=== PATIENT | female | born 1960 | race Caucasian/White ===

== ENCOUNTER 2017-09-07 11:57 | Inpatient (IN) | payer MEDICARE, OTHER ==
[~2017-09-07] VITALS: Ht 154.9 cm; Wt 90.3 kg
[2017-09-07] MEDS ORDERED: clonazePAM 0.5 MG TABLET PO PRN (14:00)
[2017-09-07] MEDS ORDERED: MAG HYDROX/AL HYDROX/SIMETH 30 ML UDC PO PRN (14:00)
[2017-09-07] MEDS ORDERED: ACETAMINOPHEN 325 MG TABLET PO PRN (14:00)
[2017-09-07] MEDS ORDERED: TEMAZEPAM 7.5 MG CAPSULE PO PRN (14:00)
[2017-09-07] MEDS ORDERED: MAGNESIUM HYDROXIDE 30 ML UDC PO PRN (14:00)
[2017-09-07] MEDS ORDERED: METF500T6 PO (14:30)
[2017-09-07] MEDS ORDERED: MAGN400T26 PO (14:30)
[2017-09-07] MEDS ORDERED: LOSA50TA21 PO (14:30)
[2017-09-07] MEDS ORDERED: INSU100V10 SQ (14:30)
[2017-09-07] MEDS ORDERED: ASPI-1152 PO (14:30)
[2017-09-07] MEDS ORDERED: GLIP10TA11 PO (14:30)
[2017-09-07] MEDS ORDERED: CARV3.122 PO (14:30)
[2017-09-07] MEDS ORDERED: ISOS30TA6 PO (14:30)
[2017-09-07] MEDS ORDERED: GABA-532 PO (14:30)
[2017-09-07 16:00] VITALS: BP 137/75
[2017-09-07] MEDS ORDERED: TRAMADOL HCL 50 MG TABLET PO PRN (17:30)
[2017-09-07] MEDS ORDERED: DEXTROSE 50%-WATER 50 ML DISP.SYRIN IV PRN (17:30)
--- NOTE | 2017-09-07 17:30 | NUR ---
GPS/RN-NOTES ADMITTED 57 YEARS OLD FEMALE PATIENT FROM [facility].PATIENT IS UNDER THE CARE OF DR. DOBBINS AND DR. HUNT. BOTH MD WAS AWARE OF PATIENT ADMISSION WITH ORDERS. UPON FACE TO FACE ASSESSMENT, PATIENT ALERT ORIENTED X2 AMBULATORY WITH ASSIST AZERI SPEAKING ONLY. PATIENT NOTED WITH EASILY ANGRY ,GUARDED DEPRESSED MOOD AND UNCOOPERATIVE BEHAVIOR. REFUSED BODY ASSESSMENT AND PHOTO TAKEN AT THIS TIME. CONTRABAND DONE NO BELONGINGS ON ADMISSION. PATIENT DTR ALISON ARANGO MADE AWARE OF THE ADMISSION. MRSA DONE. PATIENT WAS ORIENTED TO THE UNIT AND UNIT POLICIES. PATIENT RIGHTS WAS DISCUSS WITH THE PATIENT AND BOOKLET WAS GIVEN TO HER. WILL CONT. MONITORING Q15 MINS. FOR SAFETY AND BEHAVIOR.
[2017-09-07] MEDS: BLOOD SUGAR DIAGNOSTIC 1 EACH STRIP IN SCH (17:54)
[2017-09-07] MEDS: ESCITALOPRAM OXALATE (10 MG) 10 MG TABLET PO SCH (17:57)
[2017-09-07] MEDS: LOSARTAN POTASSIUM 50 MG TABLET PO SCH (17:58)
[2017-09-07] MEDS: INSULIN REGULAR, HUMAN 100 UNIT/ML 3 ML VIAL SQ PRN (18:21)
[2017-09-07] MEDS: GABAPENTIN 100 MG CAPSULE PO SCH (18:23)
--- NOTE | 2017-09-07 18:31 | NUR ---
GPS/RN-NOTES PATIENT REFUSED LAB DRAW AT THIS TIME DESPITE EXPLANATION RISK AND BENEFITS . WILL ENDORSE TO INCOMING NURSE FOR CONTINUITY OF CARE.
[2017-09-07 20:00] VITALS: BP 127/70
[2017-09-08] MEDS: ARIPIPRAZOLE 5 MG TABLET PO SCH ×2 (00:02→22:46)
[2017-09-08] MEDS: BLOOD SUGAR DIAGNOSTIC 1 EACH STRIP IN SCH ×5 (00:03→22:47)
[2017-09-08] MEDS: CARVEDILOL 6.25 MG TABLET PO SCH ×3 (00:03→22:46)
[2017-09-08] MEDS: INSULIN REGULAR, HUMAN 100 UNIT/ML 3 ML VIAL SQ PRN ×5 (00:07→22:49)
[2017-09-08 08:00] VITALS: BP 141/83
[2017-09-08 08:30] LABS: BASOPHILS % (AUTO) 0.4 % (0.0-2.0); EOSINOPHILS % (AUTO) 2.9 % (0.0-6.0); HEMATOCRIT 41 % (33-45); HEMOGLOBIN 14.5 g/dL (11.5-14.8); LYMPHOCYTES # (AUTO) 2.4 /CMM (0.8-4.8); LYMPHOCYTES % (AUTO) 24.6 % (20.0-44.0); MEAN CORPUSCULAR HEMOGLOBIN 33 PG (26.0-33.0); MEAN CORPUSCULAR HGB CONC 35 g/dl (31.0-36.0); MEAN CORPUSCULAR VOLUME 93 fL (82-100); MONOCYTES # (AUTO) 0.8 /CMM (0.1-1.30); NEUTROPHILS # (AUTO) 6.3 /CMM (1.8-8.9); NEUTROPHILS % (AUTO) 64.1 % (43.0-81.0); PLATELET COUNT (AUTO) 212 /CMM (150-450); RDW COEFFICIENT OF VARIATION 12.3 (11.5-15.0); RED BLOOD CELL COUNT(AUTO) 4.42 MIL/uL (4.0-5.2); WHITE BLOOD COUNT (AUTO) 9.8 K/uL (4.3-11.0)
[2017-09-08] MEDS: LOSARTAN POTASSIUM 50 MG TABLET PO SCH (08:33)
[2017-09-08] MEDS: GABAPENTIN 100 MG CAPSULE PO SCH ×3 (08:33→17:58)
[2017-09-08] MEDS: ESCITALOPRAM OXALATE (10 MG) 10 MG TABLET PO SCH (08:33)
[2017-09-08] MEDS: ASPIRIN 81 MG TAB.CHEW PO SCH (08:34)
[2017-09-08 08:38] LABS: CHOLESTEROL 185 mg/dL (<200); HDL CHOLESTEROL 38 mg/dL (40-60); LDL 127 mg/dL (0-99); TRIGLYCERIDES 161 mg/dL (30-150)
[2017-09-08 08:42] LABS: ALBUMIN 2.4 g/dL (3.4-5.0); BILIRUBIN,TOTAL 0.4 mg/dL (0.2-1.0); CALCIUM, SERUM 8.8 mg/dL (8.5-10.1); CREATININE 0.6 mg/dL (0.6-1.3); POTASSIUM 3.8 mmol/L (3.5-5.1)
[2017-09-08 09:29] LABS: THYROID STIMULATING HORMONE 1.303 uIU/mL (0.358-3.74)
[2017-09-08 09:53] LABS: MAGNESIUM 1.5 mg/dL (1.8-2.4)
--- NOTE | 2017-09-08 14:14 | NUR ---
TATYANA contacted pts daughter Karma [phone] for collateral information. Pt daughter stated that her and sister Soraida Palma wish for pt to be placed in a SNF.
--- NOTE | 2017-09-08 14:15 | NUR ---
SW attempted to contact APS social service assistant Gila Castano [phone]. Per pts daughter Karma phillips currently has an open case with APS and case # is [id number]. SW left voicemail for callback.
--- NOTE | 2017-09-08 15:00 | NUR ---
INITIAL DISCHARGE PLAN: Per pts daughter Karma Calderon [phone] she wishes patient to be discharged to SNF. Pts daughter will assist SW with locating a SNF close to [place], [place] as she wants pt to be close to her home. SW will help form a safe and proper discharge in collaboration with MD and daughter.
[2017-09-08 16:08] VITALS: BP 145/83
[2017-09-08 20:00] VITALS: BP 117/89
[2017-09-09 08:00] VITALS: BP 157/86
[2017-09-09] MEDS: BLOOD SUGAR DIAGNOSTIC 1 EACH STRIP IN SCH ×4 (08:38→21:29)
[2017-09-09] MEDS: INSULIN REGULAR, HUMAN 100 UNIT/ML 3 ML VIAL SQ PRN ×3 (08:40→21:39)
[2017-09-09] MEDS: LOSARTAN POTASSIUM 50 MG TABLET PO SCH (08:48)
[2017-09-09] MEDS: ASPIRIN 81 MG TAB.CHEW PO SCH (08:48)
[2017-09-09] MEDS: GABAPENTIN 100 MG CAPSULE PO SCH ×3 (08:49→16:58)
[2017-09-09] MEDS: ESCITALOPRAM OXALATE (10 MG) 10 MG TABLET PO SCH (08:49)
[2017-09-09] MEDS: CARVEDILOL 6.25 MG TABLET PO SCH ×2 (08:49→20:07)
[2017-09-09 16:36] VITALS: BP 142/91
[2017-09-09] MEDS: ARIPIPRAZOLE 5 MG TABLET PO SCH (21:29)
[2017-09-10] MEDS ORDERED: MECLIZINE HCL 12.5 MG TABLET PO PRN (01:30)
--- NOTE | 2017-09-10 03:22 | NUR ---
GPS RN NOTE: Patient had an episode of dizziness and nausea. Per daughter, patient had a prescription of meclizine and reglan. Notified Dr. Schaefer with orders received noted and carried out. Will continue to monitor [id number] for safety
[2017-09-10 08:00] VITALS: BP 148/88
[2017-09-10] MEDS: ESCITALOPRAM OXALATE (10 MG) 10 MG TABLET PO SCH (08:13)
[2017-09-10] MEDS: LOSARTAN POTASSIUM 50 MG TABLET PO SCH (08:14)
[2017-09-10] MEDS: GABAPENTIN 100 MG CAPSULE PO SCH ×2 (08:14→12:00)
[2017-09-10] MEDS: ASPIRIN 81 MG TAB.CHEW PO SCH (08:14)
[2017-09-10] MEDS: CARVEDILOL 6.25 MG TABLET PO SCH ×2 (08:14→21:21)
[2017-09-10] MEDS: BLOOD SUGAR DIAGNOSTIC 1 EACH STRIP IN SCH ×4 (08:22→21:49)
[2017-09-10] MEDS: INSULIN REGULAR, HUMAN 100 UNIT/ML 3 ML VIAL SQ PRN ×4 (08:59→21:52)
--- NOTE | 2017-09-10 08:59 | NUR ---
[id number]: BLOOD SUGAR IS 225 MG/DL AND GAVE 4 UNITS OF REGULAR INSULIN.
--- NOTE | 2017-09-10 12:00 | NUR ---
[id number]: BLOOD SUGAR IS 205 MG/DL AND GAVE 4 UNITS OF REGULAR INSULIN
[2017-09-10 16:00] VITALS: BP 152/95
--- NOTE | 2017-09-10 17:40 | NUR ---
GPS/RN PRIMARY NURSE ELVI REVELES CALLED TODAY VIA [employer] EXCHANGE TO REMIND DR HUNT TO [facility]
[2017-09-10 20:04] VITALS: BP 122/76
[2017-09-10] MEDS: ARIPIPRAZOLE 5 MG TABLET PO SCH (21:20)
[2017-09-10] MEDS ORDERED: GABAPENTIN 100 MG CAPSULE PO SCH (22:00)
[2017-09-11] MEDS: BLOOD SUGAR DIAGNOSTIC 1 EACH STRIP IN SCH ×4 (07:54→22:03)
[2017-09-11] MEDS: INSULIN REGULAR, HUMAN 100 UNIT/ML 3 ML VIAL SQ PRN ×4 (08:18→22:06)
[2017-09-11 08:43] VITALS: BP 174/91
[2017-09-11] MEDS ORDERED: LOSARTAN POTASSIUM 50 MG TABLET PO SCH (09:00)
[2017-09-11] MEDS ORDERED: ASPIRIN EC 81 MG TABLET.DR PO SCH (09:00)
[2017-09-11] MEDS ORDERED: CARVEDILOL 3.125 MG TABLET PO SCH (09:00)
[2017-09-11] MEDS: GABAPENTIN 100 MG CAPSULE PO SCH ×4 (09:37→21:38)
[2017-09-11] MEDS: glipiZIDE 10 MG TABLET PO SCH ×2 (09:38→17:28)
[2017-09-11] MEDS: ISOSORBIDE MONONITRATE (30MG) 30 MG TAB.SR.24H PO SCH (09:38)
[2017-09-11] MEDS: CARVEDILOL 6.25 MG TABLET PO SCH ×2 (09:38→21:38)
[2017-09-11] MEDS: LOSARTAN POTASSIUM 50 MG TABLET PO SCH (09:39)
[2017-09-11] MEDS: ASPIRIN 81 MG TAB.CHEW PO SCH (09:39)
[2017-09-11] MEDS: MAGNESIUM OXIDE 400 MG TABLET PO SCH (09:39)
[2017-09-11] MEDS: ESCITALOPRAM OXALATE (10 MG) 10 MG TABLET PO SCH (09:39)
--- NOTE | 2017-09-11 09:45 | NUR ---
AM RN NOTE Spoke with Reggie (Pharmacist) to refill metformin in [facility], due dose not available.
[2017-09-11] MEDS: METFORMIN 500 MG TABLET PO SCH ×2 (10:38→17:28)
[2017-09-11 16:00] VITALS: BP 114/68
[2017-09-11 19:48] VITALS: BP 114/60
[2017-09-11] MEDS: ARIPIPRAZOLE 5 MG TABLET PO SCH (21:39)
[2017-09-12 08:00] VITALS: BP 126/65
[2017-09-12] MEDS: BLOOD SUGAR DIAGNOSTIC 1 EACH STRIP IN SCH ×4 (08:32→22:39)
[2017-09-12] MEDS: INSULIN REGULAR, HUMAN 100 UNIT/ML 3 ML VIAL SQ PRN ×4 (08:33→22:42)
[2017-09-12] MEDS: ESCITALOPRAM OXALATE (10 MG) 10 MG TABLET PO SCH (08:35)
[2017-09-12] MEDS: GABAPENTIN 100 MG CAPSULE PO SCH ×4 (08:35→22:34)
[2017-09-12] MEDS: glipiZIDE 10 MG TABLET PO SCH ×2 (08:35→16:39)
[2017-09-12] MEDS: METFORMIN 500 MG TABLET PO SCH ×2 (08:35→16:38)
[2017-09-12] MEDS: ISOSORBIDE MONONITRATE (30MG) 30 MG TAB.SR.24H PO SCH (08:35)
[2017-09-12] MEDS: CARVEDILOL 6.25 MG TABLET PO SCH ×2 (08:36→20:35)
[2017-09-12] MEDS: MAGNESIUM OXIDE 400 MG TABLET PO SCH (08:36)
[2017-09-12] MEDS: ASPIRIN 81 MG TAB.CHEW PO SCH (08:36)
[2017-09-12] MEDS: LOSARTAN POTASSIUM 50 MG TABLET PO SCH (09:00)
--- NOTE | 2017-09-12 09:14 | NUR ---
TATYANA faxed SNF referral to Maciel Subsystems Engineer at [facility] Address: [address] [place] [address], [place] [address] for review.
--- NOTE | 2017-09-12 09:16 | NUR ---
TATYANA faxed SNF referral to [facility] [address] in [place], [place] [address] for review.
--- NOTE | 2017-09-12 13:33 | NUR ---
SW received phone call from APS criminal justice social worker Gila Castano [phone] requesting information regarding pts hold and mental state such as orientation and capability to make own decisions. SW provided APS SW with information stating that pts insight and judgement were impaired and cooperation was minimal. SW also provided APS SW information regarding discharge plan. SW will notify APS SW when pt is discharged.
--- NOTE | 2017-09-12 13:37 | NUR ---
SW received phone call from Iris community service officer coordinator at [facility] Address: [address] [place] [address], [place] [address] stating that pt had been accepted to facility.
--- NOTE | 2017-09-12 13:38 | NUR ---
SW received phone call from Adriano recycling coordinator from [facility] [address] [facility] in [place], [place] [address] stating that pt has been accepted to their facility.
[2017-09-12 16:11] VITALS: BP 115/69
[2017-09-12 20:39] VITALS: BP 125/59
[2017-09-12] MEDS: ARIPIPRAZOLE 5 MG TABLET PO SCH (22:34)
--- NOTE | 2017-09-12 22:39 | NUR ---
ACCUCHECK = 145 MG/DL.
[2017-09-13 08:00] VITALS: BP 128/74
[2017-09-13] MEDS: BLOOD SUGAR DIAGNOSTIC 1 EACH STRIP IN SCH ×4 (08:21→22:16)
[2017-09-13] MEDS: INSULIN REGULAR, HUMAN 100 UNIT/ML 3 ML VIAL SQ PRN ×4 (08:24→22:19)
[2017-09-13] MEDS: MAGNESIUM OXIDE 400 MG TABLET PO SCH (09:22)
[2017-09-13] MEDS: ASPIRIN 81 MG TAB.CHEW PO SCH (09:22)
[2017-09-13] MEDS: ISOSORBIDE MONONITRATE (30MG) 30 MG TAB.SR.24H PO SCH (09:23)
[2017-09-13] MEDS: glipiZIDE 10 MG TABLET PO SCH ×2 (09:23→17:50)
[2017-09-13] MEDS: METFORMIN 500 MG TABLET PO SCH ×2 (09:23→17:50)
[2017-09-13] MEDS: ESCITALOPRAM OXALATE (10 MG) 10 MG TABLET PO SCH (09:23)
[2017-09-13] MEDS: CARVEDILOL 6.25 MG TABLET PO SCH ×2 (09:24→22:03)
[2017-09-13] MEDS: GABAPENTIN 100 MG CAPSULE PO SCH ×4 (09:24→22:03)
[2017-09-13 16:00] VITALS: BP 115/71
--- NOTE | 2017-09-13 16:00 | NUR ---
TATYANA spoke with Pts daughter Karma [phone] regarding pts discharge and acceptance to [facility] and [facility]. Pts daughter stated that she did not approve of discharge to either facility due to poor ratings online. TATYANA explained to pts daughter that she had encouraged her to provide SW with a list of SNFs of her liking however had not received any information from her in the past week. TATYANA also explained to pts daughter that if she interfered with discharge she would get charged the Medicare rate of approximately $1000 per day. Pts daughter understood and stated to TATYANA that she would call her morning to discuss SNF options in [place].
[2017-09-13] MEDS: LOSARTAN POTASSIUM 50 MG TABLET PO SCH (17:15)
--- NOTE | 2017-09-13 18:00 | NUR ---
dr. bradford in to see pt. pt. relocated to room 214-a.pt. just announced wants a different roommate.propellant charge loader aware.ua sent to lab.
--- NOTE | 2017-09-13 20:00 | NUR ---
GPS RN NOTE: RECEIVED PATIENT IN GERICHAIR IN DAYROOM, NAPPING BUT EASILY AROUSES TO NAME, ORIENTED X 2, FLAT AFFECT. DOES NOT ENGAGE IN CONVERSATION BUT DENIED COMPLAINTS AND NO SIGNS OF APPARENT DISTRESS. WILL CONTINUE TO MONITOR Q 15 MINUTES FOR COMFORT AND SAFETY.
[2017-09-13 21:42] VITALS: BP 144/82
[2017-09-13] MEDS: ARIPIPRAZOLE 5 MG TABLET PO SCH (22:01)
[2017-09-13] MEDS: ATORVASTATIN 10 MG TABLET PO SCH (22:03)
[2017-09-14 07:24] LABS: BASOPHILS % (AUTO) 0.5 % (0.0-2.0); EOSINOPHILS % (AUTO) 4.3 % (0.0-6.0); HEMATOCRIT 43 % (33-45); HEMOGLOBIN 14.6 g/dL (11.5-14.8); LYMPHOCYTES # (AUTO) 2.2 /CMM (0.8-4.8); MEAN CORPUSCULAR HEMOGLOBIN 32 PG (26.0-33.0); MEAN CORPUSCULAR HGB CONC 34 g/dl (31.0-36.0); MEAN CORPUSCULAR VOLUME 95 fL (82-100); MONOCYTES # (AUTO) 0.5 /CMM (0.1-1.30); MONOCYTES % (AUTO) 7.3 % (2.0-12.0); NEUTROPHILS # (AUTO) 3.5 /CMM (1.8-8.9); NEUTROPHILS % (AUTO) 53.9 % (43.0-81.0); PLATELET COUNT (AUTO) 275 /CMM (150-450); RDW COEFFICIENT OF VARIATION 13.1 (11.5-15.0); RED BLOOD CELL COUNT(AUTO) 4.54 MIL/uL (4.0-5.2); WHITE BLOOD COUNT (AUTO) 6.6 K/uL (4.3-11.0)
[2017-09-14] MEDS: BLOOD SUGAR DIAGNOSTIC 1 EACH STRIP IN SCH ×4 (07:38→21:49)
[2017-09-14 07:40] LABS: CALCIUM, SERUM 8.9 mg/dL (8.5-10.1); CREATININE 0.8 mg/dL (0.6-1.3); MAGNESIUM 1.7 mg/dL (1.8-2.4); PHOSPHORUS 4.5 mg/dL (2.5-4.9); POTASSIUM 4.1 mmol/L (3.5-5.1)
[2017-09-14 08:12] VITALS: BP 125/75
[2017-09-14] MEDS: GABAPENTIN 100 MG CAPSULE PO SCH ×5 (08:12→21:37)
[2017-09-14] MEDS: ISOSORBIDE MONONITRATE (30MG) 30 MG TAB.SR.24H PO SCH (08:12)
[2017-09-14] MEDS: LOSARTAN POTASSIUM 50 MG TABLET PO SCH (08:12)
[2017-09-14] MEDS: METFORMIN 500 MG TABLET PO SCH ×2 (08:12→16:40)
[2017-09-14] MEDS: MAGNESIUM OXIDE 400 MG TABLET PO SCH (08:12)
[2017-09-14] MEDS: ESCITALOPRAM OXALATE (10 MG) 10 MG TABLET PO SCH (08:13)
[2017-09-14] MEDS: glipiZIDE 10 MG TABLET PO SCH ×2 (08:13→16:40)
[2017-09-14] MEDS: ASPIRIN 81 MG TAB.CHEW PO SCH (08:13)
[2017-09-14] MEDS: CARVEDILOL 6.25 MG TABLET PO SCH ×2 (08:13→20:28)
--- NOTE | 2017-09-14 08:40 | NUR ---
TATYANA faxed SNF referral to Vivian disability coordinator at [facility] Address: [address] [place] [address] for review.
--- NOTE | 2017-09-14 11:55 | NUR ---
SW contacted Vivian early childhood education coordinator at [facility] Address: [address] [place] [address] for confirmed pt is approved for admission.
[2017-09-14] MEDS: INSULIN REGULAR, HUMAN 100 UNIT/ML 3 ML VIAL SQ PRN ×2 (11:59→21:52)
--- NOTE | 2017-09-14 11:59 | NUR ---
BS is 148 and pt. refused for 2 units of Humulin R, explained on the importance and said "no Insulina" in luxembourgish terminology. Will continue to monitor.
[2017-09-14 16:00] VITALS: BP 133/73
--- NOTE | 2017-09-14 19:41 | NUR ---
GPS RN NOTE: RECEIVED PATIENT ASLEEP IN BED IN ROOM. AWAKENS TO NAME, ORIENTED X 2. CALM AND PLEASANT BUT WITHDRAWN. NO SI, HI, HALLUCINATION, PAIN. DENIES COMPLAINT, NO APPARENT DISTRESS. BED IN LOW POSITION, SIDE RAILS UP X 2 FOR SAFETY. WALKER BY BESIDE, EDUCATED TO ASK FOR ASSISTANCE WITH AMBULATION NEEDED. WILL CONTINUE TO MONITOR Q15 MINUTES FOR SAFETY AND COMFORT.
[2017-09-14 20:00] VITALS: BP 131/69
--- NOTE | 2017-09-14 20:22 | NUR ---
PAGED DR. ADAMS, FASHION MERCHANDISER MD, REGARDING POSITIVE URINE LAB E. COLI, 100,000 CFUS, SENSITIVITIES PENDING. WAITING CB FOR ORDERS.
--- NOTE | 2017-09-14 20:37 | NUR ---
RECEIVED CALL FROM DR. ADAMS REGARDING POSITIVE URINE CULTURE @ 2034. PER DR. ADAMS, SINCE PATIENT IS ASYMPTOMATIC FOR UTI AND AFEBRILE, NO ORDERS.
[2017-09-14] MEDS: ATORVASTATIN 10 MG TABLET PO SCH (21:37)
[2017-09-14] MEDS: ARIPIPRAZOLE 5 MG TABLET PO SCH (21:38)
[2017-09-15] MEDS: BLOOD SUGAR DIAGNOSTIC 1 EACH STRIP IN SCH ×2 (07:46→12:07)
[2017-09-15 08:00] VITALS: BP 130/67
[2017-09-15] MEDS: ASPIRIN 81 MG TAB.CHEW PO SCH (08:54)
[2017-09-15] MEDS: ISOSORBIDE MONONITRATE (30MG) 30 MG TAB.SR.24H PO SCH (08:54)
[2017-09-15] MEDS: glipiZIDE 10 MG TABLET PO SCH (08:54)
[2017-09-15] MEDS: METFORMIN 500 MG TABLET PO SCH (08:54)
[2017-09-15] MEDS: MAGNESIUM OXIDE 400 MG TABLET PO SCH (08:55)
[2017-09-15] MEDS: CARVEDILOL 6.25 MG TABLET PO SCH (08:55)
[2017-09-15] MEDS: GABAPENTIN 100 MG CAPSULE PO SCH ×2 (08:55→12:09)
[2017-09-15] MEDS: ESCITALOPRAM OXALATE (10 MG) 10 MG TABLET PO SCH (08:55)
[2017-09-15 08:56] VITALS: BP 130/67
[2017-09-15] MEDS: LOSARTAN POTASSIUM 50 MG TABLET PO SCH (08:56)
[2017-09-15] MEDS: INSULIN REGULAR, HUMAN 100 UNIT/ML 3 ML VIAL SQ PRN (12:08)
--- NOTE | 2017-09-15 12:30 | NUR ---
GPS/RN PT DISCHARGED TO [facility] Address. PRESCRIPTIONS AND EXIT CARE PROVIDED. NO SI OR HI AT THE TIME OF D/C. PT IS NOT AMBULATORY REFUSED SKIN ASSESSMENT AND TO SIGN THE D/C PAPERWORK AT THE TIME OF DISCHARGE. NO BELONGINGS LISTED WITH THE PATIENT. LEFT TO THE FACILITY VIA AMBULANCE.
--- NOTE | 2017-09-15 13:08 | NUR ---
DISCHARGE NOTE: Pt was discharged at 12:30pm via [facility] ambulance trip #[id number] to [facility] Address: [address] [place] [address] . Pts daughter Karma [phone] was notified and agreed with discharge plan. Pts mood was pleasant with congruent affect and pt denied sucicidal/homicidal ideations and denied visual/auditory hallucinations. Pt will be under the care of Psychiatrist: Dr. Werner Address: [address] [facility] [address] [address] and Financial Health Counselor: Dr. Yoana Lr [address] [place] [address] [phone]. The multidisciplinary exitcare form was done, printed, signed, and given to the patient.
== END 2017-09-15 12:30 | DRG 885 ==
LOC: GPS 13:38
PROVIDERS: ADMIT Psychiatry & Neurology Psychiatry; ATTEND Psychiatry & Neurology Psychiatry
DX: F33.3 Major depressive disorder, recurrent, severe with psychotic symptoms (principal); I11.0 Hypertensive heart disease with heart failure; E11.65 Type 2 diabetes mellitus with hyperglycemia; E87.1 Hypo-osmolality and hyponatremia; I50.32 Chronic diastolic (congestive) heart failure; E78.5 Hyperlipidemia, unspecified; G62.9 Polyneuropathy, unspecified; E66.9 Obesity, unspecified; Z68.37 Body mass index [BMI] 37.0-37.9, adult; Z91.19 Patient's noncompliance with other medical treatment and regimen; Z86.73 Personal history of transient ischemic attack (TIA), and cerebral infarction without residual deficits; Z79.899 Other long term (current) drug therapy; F41.9 Anxiety disorder, unspecified
CPT/HCPCS: 36415; 80048-TC; 80053-TC; 80061-TC; 82746; 82962-TC; 83540-TC; 83735-TC; 84100-TC; 84300-TC; 84443-TC; 85025-TC; 87081-TC; 87086-TC; 87186-TC; A6402; J1815; J8597